=== PATIENT | female | born 2000 | race Caucasian/White ===

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

== ENCOUNTER 2025-05-20 05:41 | Emergency (ER) | payer BC ==
[2025-05-20] MEDS: EPINEPHrine 1 MG/ML SDV IM ONE ×2 (06:06→07:19)
[2025-05-20] MEDS: diphenhydrAMINE 50 MG/ML SDV IVPUSH ONE (06:07)
[2025-05-20] MEDS: methylPREDNISolone Sodium Succinate 125 MG/2 ML SDV IVPUSH ONE (06:07)
[2025-05-20 08:12] VITALS: BP 124/84; PULSE 94
== END 2025-05-20 07:50 | disposition home or self-care (01) ==
LOC: JD.ED 05:41
DX: L50.9 Urticaria, unspecified (principal); Z88.2 Allergy status to sulfonamides; Z79.899 Other long term (current) drug therapy
CPT/HCPCS: 96372; 96374; 96375; 96376; 99283; J0169; J1200; J1308; J2919